=== PATIENT | male | born 1960 | race Caucasian/White ===

== ENCOUNTER 2023-02-05 12:14 | Outpatient (REF) | payer MEDICAID, SELFPAY ==
--- NOTE | ~2023-02-05 | XR_ITS ---
EXAMINATION: XR SHOULDER, LEFT CLINICAL INFORMATION: Pain in unspecified shoulder COMPARISON: None available. TECHNIQUE: AP neutral, Grashey and axillary views of the left shoulder. FINDINGS: The bones are intact. No fracture. Glenohumeral and acromioclavicular alignment is anatomic with normal glenohumeral joint space. Small marginal osteophytes extend off the humeral head and inferior aspect of the glenoid. There is mild degenerative change of acromioclavicular joint. On the axillary view, a few punctate calcific density is seen adjacent to the humeral head. XR/XR shoulder LT min 2V IMPRESSION: 1. Mild degenerative change of the glenohumeral and acromioclavicular joints. 2. Calcific tendinitis.
== END 2023-02-05 12:15 | disposition home or self-care (01) ==
LOC: HO.HOSX 12:14
PROVIDERS: Visit Provider Orthopaedic Surgery
DX: M19.012 Primary osteoarthritis, left shoulder (principal)
CPT/HCPCS: 73030

== ENCOUNTER 2023-02-05 13:56 | Outpatient (AMB) | payer MEDICAID, SELFPAY ==
--- NOTE | 2023-02-05 14:15 | MHC.OFFVIS ---
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 Patient reports that he has had intermittent pain ongoing for about 5-6 years now. Hx of injetion done which was helpful. He explains that he had pockets of pus in his underarms and was prescribe physical therapy. 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 Faroese patient He complains of occasional pain that is not associated with any particular activity. He says his pain is intermittent and has been present for ~6 years. He found some relief from steroid injections in the past, but his last was many years ago. He has been attending PT. He reports a history of Sebaceous cysts in his underarms. Review of Systems Const All systems reviewed & are unremarkable except as noted in HPI and below Physical Exam Const General: no acute distress, alert and awake Orientation/consciousness: patient oriented x3 HEENT Head: Yes normocephalic and Yes atraumatic Eyes EOM: EOMs intact bilaterally Resp Effort & Inspection: normal respiratory effort and able to speak in complete sentences Cardio Jugular venous distension: no JVD Skin General skin exam: turgor normal Rashes: no rashes Neuro General: patient oriented x3 Extrem Other: Left Shoulder: Some pain with empty can testing, but no focal weakness Otherwise unremarkable exam Psych Appearance: grossly normal Affect: normal affect Attitude: cooperative Results Reviewed Results Reviewed: I personally reviewed relevant radiographs. Mild GH OA of the left shoulder Assessment & Plan Assessment & Plan (1) Osteoarthritis of left shoulder: Code(s): M19.012 - Primary osteoarthritis, left shoulder Plan: This is a 62 year old man with left shoulder GH OA. He has pain with daily activity, but his exam was relatively unremarkable. He found some relief from a steroid injections several years ago. I discussed his diagnosis and treatment options.He currently has no pain. If his pain returns he will call and we can inject his shoulder Plan Scribed for Tim Montelongo MD by Néstor Loyola, medical billing representative, on 02/05/23 at 2:30 PM, EST. Orders: Orders XR shoulder LT min 2V Today M25.519 - Pain in unspecified shoulder Coding Level of Care Code New Pt Level 3 (75401) Diagnoses Osteoarthritis of left shoulder M19.012
== END 2023-02-05 14:33 | disposition home or self-care (01) ==
PROVIDERS: PCP Internal Medicine; Visit Provider Orthopaedic Surgery
DX: M19.012 Primary osteoarthritis, left shoulder (principal)
CPT/HCPCS: 99203

== ENCOUNTER 2025-03-31 13:19 | Outpatient (AMB) | payer MEDICAID, SELFPAY ==
--- NOTE | 2025-03-31 13:36 | A.OFFVIS_ITS ---
Vital Signs 03/31/25 13:41 Height 5 ft 6 in Weight 172 lb BMI 27.8 Intake Visit Reasons: ov- LT shoulder pain Intake Note: Dillon is a 64 year old male who presents today for a follow up of left shoulder pain. At his last visit with Dr. Montelongo, discussed relief with cortisone injection that was done years ago, he was instructed to follow up as needed. Today patient complains of intermittent pain. He would like to discuss injection, if necessary. His pain is located at his shoulder joint and travels up towards the side of his neck. Denies injury. No numbness or tingling. He has attended therapy in the past. Allergies No Known Allergies Allergy (Unverified 01/26/20 17:59) HPI HPI ov- LT shoulder pain: Details: 64-year-old gentleman presents to the office today for left shoulder pain. He saw Dr. Montelongo in 2022 for his left shoulder but he was doing well at the time and did not require further treatment. He comes in today mentioning 3 weeks ago his shoulder was causing pain but he uses topical creams and tramadol prescribed by his primary therefore his pain is tolerable. He has no limitations in function and no interruptions with sleeping at night. PFSH Surgical History (Updated 03/31/25 @ 13:41 by BRENDAN Livingston) Hx of prostatectomy Social History (Updated 03/31/25 @ 13:41 by BRENDAN Livingston) Patient Tobacco Use Status: Current everyday Tobacco user Current occupational status: unemployed Review of Systems Const All systems reviewed & are unremarkable except as noted in HPI and below Physical Exam Vital Signs: BMI result Body Mass Index 27.8 Const General: cooperative and no acute distress Orientation/consciousness: patient oriented x3 Resp Effort & Inspection: normal respiratory effort and able to speak in complete sentences Cardio Peripheral pulses: Peripheral pulses 2+ throughout Neuro General: patient oriented x3 Extrem Other: Left shoulder full range of motion in all planes. Negative Narayan and cross- body adduction. Mild tenderness over the trapezium into the neck. 5/5 rotator cuff strength. Neurovascularly intact. Results Reviewed Results Reviewed: X-rays of the left shoulder obtained in the office today and reviewed by me show mild glenohumeral and AC joint arthritis. Assessment & Plan Assessment & Plan (1) Osteoarthritis of left shoulder: Code(s): M19.012 - Primary osteoarthritis, left shoulder Category: Medical Plan: At this time the patient will continue with conservative treatment with anti- inflammatories and modification of activities. If symptoms worsen and he is unable to perform certain activities he can contact our office and we can discuss steroid injection otherwise he will follow up as needed. Orders: Orders XR knee RT 3V Today M17.11 - Unilateral primary osteoarthritis, right knee XR shoulder LT min 2V Today M25.512 - Pain in left shoulder Coding Level of Care Code Est Pt Level 3 (89443) [employer] Program Smpl 3 or less Diagnoses Osteoarthritis of left shoulder M19.012
--- OUTSIDE RECORDS SUMMARY | 2025-03-31 13:37 | XMS_ITS | Encounter Summary ---
Author Organization [facility] Address [address] [place] [address] Care Team Providers Care Trauma Doctor Name Role Phone Harry Grijalva Primary Care Provider [phone] Encounter Details Date Type Department Care Team (Late st Contact Info) Description 08/05/2024 Lab Requisition [facility] - Main Lab [address] [facility] [employer] [place] [address] Abbe Allen MD [address] [facility] [place] [address] [place] [address] Benign essential microscopic hematuria Social History Tobacco Use Types Packs/Day Years Used Date Smoking Tobacco: Never Assessed Sex and Gender Information Value Date Recorded Sex Assigned at Not on file Legal Sex Male 3:25 AM EST Gender Identity Not on file Sexual Orientation Not on file documented as of this encounter Plan of Treatment Not on file documented as of this encounter Procedures Procedure Name Priority Date/Time Associated Diagnosis Comments AP OUTSIDE CONSULT Routine 08/01/2024 12 :00 AM EDT Benign essential microscopic hematuria documented in this encounter Results * Anatomic pathology outside consult (08/01/2024 12:00 AM EDT) Addendum Results of UroVysion fluorescence in situ hybridization (FISH) testing: CEP3: Normal CEP7: Normal CEP17: Normal LSI 9p21: Normal Interpretation: Normal profile Controls stained appropriately. Note: The results are intended as a screening device and should be interpreted in association with other clinical and pathological findings. 08/09/2024 4:58 PM EDT [facility] ([facility]) [facility] Addendum electronically signed by Sobia Kelsey MD on 08/09/2024 at 4:58 PM Final Diagnosis A. Urine, Voided, ([id number]): Negative for high grade urothelial carcinoma. Note: UroVysion testing to follow. 08/09/2024 4:[address] [facility] Clinical Information Benign essential microscopic hematuria R31.1 Urine Cytology/FISH (now) 08/09/2024 4:[address] [facility] Gross Description A. Urine, Voided, ([id number]): Received one ThinPrep slide for cytology and one ThinPrep slide for UroVysion FISH 08/09/2024 4:[address] [facility] Disclaimer Unless otherwise specified, all tissue is 10% NB formalin fixed and paraffin embedded. Technical pathology services provided by [facility] [address] [facility] [address] [address] (CLIA #[id number]/Lanie Butterfield MD, Laborer Poultry [employer]chery) 08/09/2024 4:[address] [facility] Tissue Urine specimen from urethra / Unknown 08/01/2024 08/05/2024 8:40 AM EDT us Abbe Allen MD LAB PATHOLOGY ORDERABLES Edited Result - Final [facility] [address] [place] [address], documented in this encounter Visit Diagnoses Diagnosis Benign essential microscopic hematuria documented in this encounter Care Teams Trauma Doctor Relationship Specialty Start Date End Date Harry Grijalva PA [address] [place] [address] PCP - General Physician Sheet Rock Nailer 07/11/24 documented as of this encounter
--- OUTSIDE RECORDS SUMMARY | 2025-03-31 13:37 | XMS_ITS | Clinical Summary ---
Author Organization [facility] Address [address] [place] [address] Phone Care Team Providers Care Field Training Manager Name Role Phone Harry Grijalva Primary Care Provider [phone] Allergies Active Allergy Reactions Criticality Noted Date Comments Nsaids (Non-Steroidal Anti-I nflammatory Drug) 03/24/2023 Medications bisacodyL (DULCOLAX) 5 mg EC tablet Take 2 tabs at 6pm as directed Do not crush, chew, or split. Active bisacodyL (DULCOLAX) 5 mg EC tablet Take 2 tabs by mouth right before beginning bowel prep. Follow instructions given by office for timing. Do not crush, chew, or split. Active tamsulosin (FLOMAX) 0.4 mg 24 hr capsule Take 1 capsule (0.4 mg total) by mouth 1 (one) time each day. Capsules should be taken 30 minutes following the same meal each day. Active pantoprazole (PROTONIX) 20 mg EC tablet Take 1 tablet (20 mg total) by mouth 1 (one) time each day. Do not crush, chew, or split. Active atorvastatin (LIPITOR) 40 mg tablet Take 1 tablet (40 mg total) by mouth 1 (one) time each day. Active metformin HCl (METFORMIN ORAL) Take 500 mg by mouth 2 (two) times a day with meals. Take 1 Tablet by mouth 2(two) times daily with a meal Active traMADoL (ULTRAM) 50 mg tablet Take 1 tablet (50 mg total) by mouth every 6 (six) hours if needed. Max Daily Amount: 200 mg Active aspirin 81 mg EC tablet Take 1 tablet (81 mg total) by mouth 1 (one) time each day. Active lisinopriL (PRINIVIL,ZESTR IL) 20 mg tablet Take 1 tablet (20 mg total) by mouth 1 (one) time each day. Active albuterol HFA (PROVENTIL HFA;VENTOLIN HFA) 108 (90 Base) MCG/ACT inhaler Inhale 2 puffs by mouth every 4 (four) hours if needed. Active Social History Tobacco Use Types Packs/Day Years Used Date Smoking Tobacco: Never Assessed Sex and Gender Information Value Date Recorded Sex Assigned at Not on file Legal Sex Male 3:25 AM EST Gender Identity Not on file Sexual Orientation Not on file Last Filed Vital Signs Vital Sign Reading Time Taken Comments Blood Pressure - - Pulse - - Temperature - - Respiratory Rate - - Oxygen Saturation - - Inhaled Oxygen Concentration - - Weight 78.9 kg (174 lb) 08/12/2024 10:26 AM EDT Height 165.1 cm (5' 5 ) 08/12/2024 10:26 AM EDT Body Mass Index 28.96 08/12/2024 10:26 AM EDT Plan of Treatment Health Maintenance Due Date Last Done Comments Diabetes: Annual Foot Exam 1970 Diabetes: Annual Retina Eye Exam 1970 HIV Screening 04/13/2022 Lung Cancer Screening (Low Dose CT) 04/13/2022 Social Influencers of Health Screening 04/13/2022 Depression Screening 05/11/2024 COVID-19 Vaccine ( season) 2025 05/29/2021, 08/25/2020, 07/18/2020 Influenza Vaccine (#1) 2025 01/16/2011 Diabetes: Blood Sugar Control Test (HGBA1C) 06/01/2025 11/29/2024, 07/06/2024 Diabetes: Annual GFR (Glomerular Filtration Rate) 07/22/2025 07/22/2024 Hypertension/CHF/CAD Annual BMP Blood Test 07/22/2025 07/22/2024 Diabetes: Annual Urine Albumin-Creatinine Ratio (uACR) 11/29/2025 11/29/2024, 11/18/2019 Colorectal Cancer Screening: FIT-DNA (Cologuard) 02/09/2026 02/09/2023 Cholesterol Screening (Lipid Panel) 11/29/2029 11/29/2024, 11/29/2024, 12/15/2023, Additional history exists DTaP,Tdap,and Td Vaccines (4 - Td or Tdap) 2031 09/26/2021, 01/16/2011, 12/21/2008 RSV Immunization Adult Patients (1 - 1-dose 75+ series) 09/28/2035 Hepatitis C Screening Completed 03/08/2018, 018 Zoster Vaccines Completed 09/26/2021, 10/17/2020 Pneumococcal Vaccine: 50+ Years Completed 12/15/2023, 04/12/2019 HIB Vaccines Aged Out No longer eligi ble based on patient's age to complete this topic HPV Vaccines Aged Out No longer eligi ble based on patient's age to complete this topic Hepatitis A Vaccines Aged Out No long er eligible based on patient's age to complete this topic Hepatitis B Vaccines Aged Out No long er eligible based on patient's age to complete this topic IPV Vaccines Aged Out No longer eligi ble based on patient's age to complete this topic MMR Vaccines Aged Out No longer eligi ble based on patient's age to complete this topic Meningococcal ACWY Vaccine Aged Out N o longer eligible based on patient's age to complete this topic Meningococcal B Vaccine Aged Out No l onger eligible based on patient's age to complete this topic RSV Immunization Patients Under 20 months Aged Out No longer eligible based on patient's age to complete this topic Varicella Vaccines Aged Out No longer eligible based on patient's age to complete this topic Insurance [address] [id number] MEDICAID - [place] Care Teams Field Training Manager Relationship Specialty Start Date End Date Harry Grijalva PA [address] [place] [address] PCP - General Physician Weighmaster 07/11/24
--- OUTSIDE RECORDS SUMMARY | 2025-03-31 13:37 | XMS_ITS | Encounter Summary ---
Author Organization [facility] Address [address] [place] [address] Care Team Providers Care Inventory Checker Name Role Phone Harry Grijalva Primary Care Provider [phone] Encounter Details Date Type Department Care Team (Late st Contact Info) Description 09/12/2024 Lab Requisition [facility] - Main Lab [address] [facility] [email or web address] [address] Neil Barnett MD [address] [place], [place] [id number] Elevated prostate specific antigen (PSA) Social History Tobacco Use Types Packs/Day Years [...] Associated Diagnosis Comments AP OUTSIDE CONSULT Routine 09/08/2024 Elevated prostate specific antigen (PSA) documented in this encounter Results * Anatomic pathology outside consult (09/08/2024) Final Diagnosis A. Prostate, Left Mid Vulcan Biopsy: - Prostatic acinar adenocarcinoma (conventional type), grade group 5 ([place] score 5+4=9). - Percentage pattern 4: 20%. - Percentage pattern 5: 70%. - Tumor continuously involves 55% of 1 of 1 tissue core. B. Prostate, Left Lat Vulcan Biopsy: - Prostatic acinar adenocarcinoma (conventional type), grade group 5 ([place] score 5+4=9). - Percentage pattern 4: 10%. - Percentage pattern 5: 85%. - Tumor continuously involves 50% of 1 of 1 tissue core. C. Prostate, Left Mid Mid Biopsy: - Prostatic acinar adenocarcinoma (conventional type), grade group 5 ([place] score 5+4=9). - Percentage pattern 4: 10%. - Percentage pattern 5: 60%. - Tumor discontinuously involves 90% of 1 of 1 tissue core. D. Prostate, Left Lat Mid Biopsy: - Prostatic acinar adenocarcinoma (conventional type), grade group 4 (Joleen score 3+5=8). - Percentage pattern 4: 40%. - Percentage pattern 5: 10%. - Tumor discontinuously involves 100% of 1 of 1 tissue core. E. Prostate, Left Mid Base Biopsy: - Prostatic acinar adenocarcinoma (conventional type), grade group 5 (Jolene score 5+4=9). - Percentage pattern 4: 20%. - Percentage pattern 5: 80%. - Tumor continuously involves 99% of 1 of 1 tissue core. F. Prostate, Left Lat Base Biopsy: - Prostatic acinar adenocarcinoma (conventional type), grade group 5 (Joleen score 5+4=9). - Percentage pattern 4: 20%. - Percentage pattern 5: 80%. - Tumor continuously involves 90% of 1 of 1 tissue core. G. Prostate, Right Mid Vulcan Biopsy: - Prostatic acinar adenocarcinoma (conventional type), grade group 5 ([place] score 5+4=9). - Percentage pattern 4: 20%. - Percentage pattern 5: 75%. - Tumor continuously involves 75% of 1 of 1 tissue core. H. Prostate, Right Lat Vulcan Biopsy: - Prostatic acinar adenocarcinoma (conventional type), grade group 5 (Joleen score 5+4=9). - Percentage pattern 4: 30%. - Percentage pattern 5: 70%. - Tumor continuously involves 75% of 1 of 1 tissue core. I. Prostate, Right Mid Mid Biopsy: - Prostatic acinar adenocarcinoma (conventional type), grade group 5 (Joleen score 5+4=9). - Percentage pattern 4: 20%. - Percentage pattern 5: 80%. - Tumor continuously involves 65% of 1 of 1 tissue core. J. Prostate, Right Lat Mid Biopsy: - Prostatic acinar adenocarcinoma (conventional type), grade group 5 (Joleen score 5+4=9). - Percentage pattern 4: 20%. - Percentage pattern 5: 80%. - Tumor continuously involves 90% of 1 of 1 tissue core. K. Prostate, Right Mid Base Biopsy: - Prostatic acinar adenocarcinoma (conventional type), grade group 5 (Joleen score 5+4=9). - Percentage pattern 4: 20%. - Percentage pattern 5: 80%. - Tumor continuously involves 96% of 1 of 1 tissue core. - Extraprostatic extension is present. L. Prostate, Right Lat Base Biopsy: - Prostatic acinar adenocarcinoma (conventional type), grade group 5 ([place] score 5+4=9). - Percentage pattern 4: 25%. - Percentage pattern 5: 75%. - Tumor continuously involves 90% of 1 of 1 tissue core. - Extraprostatic extension is present. M. Prostate, Right Vulcan Peripheral Zone Biopsy: - Prostatic acinar adenocarcinoma (conventional type), grade group 5 ([place] score 5+4=9). - Percentage pattern 4: 20%. - Percentage pattern 5: 79%. - Tumor continuously involves 90% of overall tissue, present in 3 of 3 tissue cores. 09/19/2024 3:43 PM [facility] Clinical Information Elevated PSA Last PSA total = 31.5 (08/03/2024) [id number] 09/19/2024 3:43 PM EDT [facility] Gross Description A. Prostate, Left Mid Vulcan Biopsy: Received, properly labeled, are two H and E stained slides and two unstained slides. B. Prostate, Left Lat Vulcan Biopsy: Received, properly labeled, are two H and E stained slides and two unstained slides. C. Prostate, Left Mid Mid Biopsy: Received, properly labeled, are two H and E stained slides and two unstained slides. D. Prostate, Left Lat Mid Biopsy: Received, properly labeled, are two H and E stained slides and two unstained slides. E. Prostate, Left Mid Base Biopsy: Received, properly labeled, are two H and E stained slides and two unstained slides. F. Prostate, Left Lat Base Biopsy: Received, properly labeled, are two H and E stained slides and two unstained slides. G. Prostate, Right Mid Vulcan Biopsy: Received, properly labeled, are two H and E stained slides and two unstained slides. H. Prostate, Right Lat Vulcan Biopsy: Received, properly labeled, are two H and E stained slides and two unstained slides. I. Prostate, Right Mid Mid Biopsy: Received, properly labeled, are two H and E stained slides and two unstained slides. J. Prostate, Right Lat Mid Biopsy: Received, properly labeled, are two H and E stained slides and two unstained slides. K. Prostate, Right Mid Base Biopsy: Received, properly labeled, are two H and E stained slides and two unstained slides. L. Prostate, Right Lat Base Biopsy: Received, properly labeled, are two H and E stained slides and two unstained slides. M. Prostate, Right Vulcan Peripheral Zone Biopsy: Received, properly labeled, are two H and E stained slides and two unstained slides. /al 09/19/2024 3:43 PM EDT [facility] Disclaimer Unless otherwise specified, all tissue is 10% NB formalin fixed and paraffin embedded. Technical pathology services provided by [facility] at [address] [place] [address] [address], [place] [address] (CLIA #[id number]/Lexus Butterfield MD, Director Of Perioperative Services) 09/19/2024 3:43 PM EDT [facility] Tissue Prostate / Unknown 09/08/20242024 8:45 AM EDT Tissue specimen (specimen) Prostate / Unknown 09/08/2024 09/12/2024 8: 53 AM EDT Tissue specimen (specimen) Prostate / Unknown 09/08/2024 09/12/2024 8: 53 AM EDT Tissue specimen (specimen) Prostate / Unknown 09/08/2024 09/12/2024 8: 53 AM EDT Tissue specimen (specimen) Prostate / Unknown 09/08/2024 09/12/2024 8: 53 AM EDT Tissue specimen (specimen) Prostate / Unknown 09/08/2024 09/12/2024 8: 53 AM EDT Tissue specimen (specimen) Prostate / Unknown 09/08/2024 09/12/2024 8: 53 AM EDT Tissue specimen (specimen) Prostate / Unknown 09/08/2024 09/12/2024 8: 53 AM EDT Tissue specimen (specimen) Prostate / Unknown 09/08/2024 09/12/2024 8: 53 AM EDT Tissue specimen (specimen) Prostate / Unknown 09/08/2024 09/12/2024 8: 53 AM EDT Tissue specimen (specimen) Prostate / Unknown 09/08/2024 09/12/2024 8: 53 AM EDT Tissue specimen (specimen) Prostate / Unknown 09/08/2024 09/12/2024 8: 53 AM EDT Tissue specimen (specimen) Prostate / Unknown 09/08/2024 09/12/2024 8: 53 AM EDT us Niel Barnett MD LAB PATHOLOGY ORDERABLES Final R esult [facility] ([facility]) [facility] [address] [place] [address], documented in this encounter Visit Diagnoses Diagnosis Elevated prostate specific antigen (PSA) documented in this encounter Care Teams Inventory Checker Relationship Specialty Start Date End Date Harry Grijalva PA [address] [place] [address] PCP - General Physician Building Supervisor 07/11/24 documented as of this encounter
--- OUTSIDE RECORDS SUMMARY | 2025-03-31 13:37 | XMS_ITS | Encounter Summary ---
Author Organization [facility] Address [address] [place] [address] Care Team Providers Care Fiber Drier Operator Name Role Phone Harry Grijalva Primary Care Provider [phone] Encounter Details Date Type Department Care Team (Late st Contact Info) Description 12/22/2024 Lab Requisition [facility] - Main Lab [address] [place] [address] Yuriy Snowden MD [address] [place] [address] Urinary tract infection, site not specified; Benign prostatic hyperplasia with lower urinary tract symptoms Social History Tobacco Use Types Packs/Day Years [...] Procedure Name Priority Date/Time Associated Diagnosis Comments CULTURE URINE Routine 12/22/2024 12:00 AM EDT Urinary tract infection, site not specified Benign prostatic hyperplasia with lower urinary tract symptoms documented in this encounter Results * Culture urine (12/22/2024 12:00 AM EDT) Culture, Urine No growth 12/23/2024 7:42 AM EDT [facility] ([facility]) [facility] Urine Urine specimen obtained by clean catch procedure / Unknown 12/22/2024 12/22/2024 2:25 PM EDT Yuriy Snowden MD LAB MICROBIOLOGY - GENERAL LORELEI ANTON Final Result [facility] ([facility]) [facility] LAB [address] [place] [address], documented in this encounter Visit Diagnoses Diagnosis Urinary tract infection, site not specified Benign prostatic hyperplasia with lower urinary tract symptoms documented in this encounter Care Teams Fiber Drier Operator Relationship Specialty Start Date End Date Harry Grijalva PA [address] [place] [id number] PCP - General Physician Pension Manager 07/11/24 documented as of this encounter
[2025-03-31 13:41] VITALS: BMI 27.8
== END 2025-03-31 14:15 | disposition home or self-care (01) ==
PROVIDERS: PCP Dentist General Practice; Visit Provider Physician Assistant
DX: M19.012 Primary osteoarthritis, left shoulder (principal)
CPT/HCPCS: 99213

== ENCOUNTER 2025-03-31 13:27 | Outpatient (REF) | payer MEDICAID, SELFPAY ==
--- NOTE | ~2025-03-31 | XR_ITS ---
EXAMINATION: XR SHOULDER, LEFT CLINICAL INFORMATION: M25.512 - Pain in left shoulder COMPARISON: X-ray 02/05/2023 TECHNIQUE: Three views of the left shoulder. FINDINGS: Mild acromioclavicular arthritis. Mild malalignment of the acromioclavicular joint, unchanged from previous, could be degenerative versus remote sprain. Mild glenohumeral arthritis. No acute fracture or dislocation. No suspicious bony lesions. No abnormal soft tissue calcifications. XR/XR shoulder LT min 2V IMPRESSION: Mild glenohumeral arthritis. Mild acromioclavicular arthritis. Mild acromioclavicular malalignment, unchanged from previous. Electronically signed by: Chandan Glynn MD 03/31/2025 04:58 PM [facility] AGUILA
== END 2025-03-31 13:28 | disposition home or self-care (01) ==
LOC: HO.HOSX 13:27
PROVIDERS: Visit Provider Physician Assistant
DX: M19.012 Primary osteoarthritis, left shoulder (principal); M17.11 Unilateral primary osteoarthritis, right knee
CPT/HCPCS: 73030; 99212

== ENCOUNTER → 2025-03-31 13:29 | Outpatient (BNV) | payer MEDICAID, SELFPAY | PROVIDERS: Visit Provider Radiology Diagnostic Ultrasound | DX: M19.012 Primary osteoarthritis, left shoulder (principal) | CPT/HCPCS: 73030 ==